=== PATIENT | female | born 1950 | race African-American/Black ===

== ENCOUNTER 2017-06-15 16:19 | Emergency (ER) | payer MEDICAID, OTHER ==
[~2017-06-15] VITALS: Ht 172.7 cm; Wt 81.0 kg
[2017-06-15 16:24] VITALS: BP 130/76
[2017-06-15] MEDS ORDERED: ACETAMINOPHEN 325MG TABLET PO ONE (16:30)
== END 2017-06-15 17:42 | disposition home or self-care (01) ==
LOC: ER 16:42
DX: M25.512 Pain in left shoulder (principal); M54.6 Pain in thoracic spine; Z88.0 Allergy status to penicillin
CPT/HCPCS: 73030; 99284